=== PATIENT | male | born 1995 | race Caucasian/White ===

== ENCOUNTER 2021-03-13 13:08 | Inpatient (IN) ==
[2021-03-13] MEDS ORDERED: FAMOTIDINE/PF 20 MG/2 ML VIAL IV ONE (15:50)
--- NOTE | 2021-03-13 15:55 | Emergency Department Note ---
Abdominal Pain HPI General Chief Complaint: Abdominal Pain Stated Complaint: abdominal pain Time Seen by Provider: 03/13/21 15:44 Source: patient Mode of arrival: ambulatory Limitations: no limitations History of Present Illness HPI Narrative: Patient is a 25-year-old gentleman who arrives the emergency department by private vehicle complaining of abdominal pain. Patient says he has been having pain in his epigastric region the past 3 days. This is gradual in onset and waxing and waning in intensity. Nothing seems to make it any better or worse. He has had some associated nausea without vomiting. He finds that eating makes the pain worse. Nothing seems to make it any better. He is never had anything like this before. He denies any associated fever chills or urinary symptoms. He has not had any diarrhea in fact has been somewhat constipated. He has been passing gas. Related Data Home Medications Medication Instructions Recorded Confirmed quetiapine [Seroquel] 200 mg PO QHS 07/15/20 03/13/21 aripiprazole [Abilify] 5 mg PO QDAY 03/13/21 03/13/21 escitalopram oxalate [Lexapro] 10 mg PO QDAY 03/13/21 03/13/21 Allergies Allergy/AdvReac Type Severity Reaction Status Date / Time No Known Drug Allergies Allergy Verified 03/13/21 13:17 Review of Systems ROS ROS Narrative: Narrative: All systems ED: reviewed and negative except as stated. Constitutional: Denies fever and chills Cardiovascular: Denies chest pain Respiratory: Denies shortness of breath and cough PFSH Narrative Patient History Narrative: Narrative: Medical/Surgical/Family History All Active Problems (Updated 03/14/21 @ 18:11 by Lefty Leonardo DO) Choledocholithiasis (Acute) Suicidal ideation (Acute) Frequent stools (Acute) Memory changes (Acute) Pelvic pain in male (Acute) Pain in right testicle (Acute) Abnormal liver function (Acute) Cholelithiasis (Acute) PTSD (post-traumatic stress disorder) (Acute) Major depression, recurrent, chronic (Acute) Generalized anxiety disorder (Acute) Routine screening for STI (sexually transmitted infection) (Acute) Acid reflux (Chronic) Anxiety and depression (Chronic) Medical History (Updated 03/14/21 @ 18:11 by Lefty Leonardo DO) Abnormal liver function Acid reflux 11/17/2019 stable with omeprazole 20 12/15/2019 increase omeprazole 40 mg daily, discussed food and beverages to avoid, follow-up 1 month, for persisting symptoms will refer to GI 01/07/2020 improved, continue and for worsening symptoms he was encouraged to let me know 06/22/2020 deteriorated, increase omeprazole to 40 mg, follow-up 1 month, consider referral to gastroenterology for persisting symptoms Anxiety and depression 11/17/2019 continue all medication, refer to [facility], establish with counseling, encouraged exercise, set up an appointment for an annual physical exam in the next 2 to 3 months 12/15/2023 behavioral health number given, encouraged him to call to schedule an appointment 01/07/2020 he has now followed by [facility], continue care there, check labs today 06/22/2020 recent changes, questions about bipolar depression, recently seen Dr. Gomez who added Seroquel to Wellbutrin, duloxetine and Vyvanse, refer to psychiatry, continue counseling follow-up here 1 month Cholelithiasis Surgical History History of surgery (~2011) Ulnar shortening History of wisdom tooth extraction (~2010) Family History Father Acid reflux Mother Osteoporosis Grandmother Dementia Paternal Social History Smoking Status: Never smoker Alcohol Intake Frequency: a few times a month Substance Use: does not use Exam Narrative Narrative: I reviewed the vital signs. Gen -patient is awake and alert and in no acute distress. The patient is well groomed. HEENT -head is atraumatic. There is no conjunctival pallor or scleral icterus. CV -S1-S2 regular rate and rhythm. Peripheral pulses are palpable. There is no JVD. Resp -breathing is nonlabored. Lungs are clear to auscultation bilaterally. There is no cyanosis. GI - Abdomen is soft and moderately tender to palpation in the epigastric region and right upper quadrant. There is no Carrera sign.. There is no guarding or rebound tenderness. Derm -skin is warm and dry. There is no visible rash. MSK -present extremities are atraumatic. Psych -patient has appropriate affect. The patient does not appear internally stimulated. Neuro -patient answers questions appropriately with fluent speech. Patient move s all present extremities equally. General Limitations: no limitations Course Vital Signs Vital signs: Vital Signs Temperature 98.9 F 03/13/21 13:10 Pulse Rate 75 03/13/21 13:10 Respiratory Rate 16 03/13/21 13:10 Blood Pressure 112/73 03/13/21 13:10 Pulse Oximetry (%) 99 03/13/21 13:10 Temperature 98.6 F 03/14/21 17:33 Pulse Rate 82 03/14/21 17:33 Respiratory Rate 16 03/14/21 17:33 Blood Pressure 107/65 03/14/21 17:33 Pulse Oximetry (%) 95 03/14/21 17:33 MDM MDM Narrative Medical decision making narrative: Patient presents with epigastric discomfort. Of some right upper quadrant tenderness to palpation on my exam so is concerned about possible cholecystitis. I obtained an ultrasound that does reveal significant common bile duct dilatation as well as some borderline gallbladder wall thickening. Labs remarkable for transaminitis and elevated bilirubin. I discussed his history examination diagnostic findings with Dr. Linares. He thinks the patient would benefit from cholecystectomy and intraoperative cholangiogram. If retained stones are found on the intraoperative cholangiogram he will be available for ERCP. He recommended I contact a surgeon about the patient's condition. I spoke with Dr. Prado who accepts admission to his [facility]. I discussed the test results and need for surgery with the patient as well as his girlfriend via telephone. They are agreeable with the plan for admission. Lab Data Lab results reviewed: Yes I reviewed the patient's lab results. Result diagrams: 03/13/21 15:50 03/13/21 16:01 Labs: Lab Results 03/13/21 03/13/21 Range/Units 15:50 16:01 WBC 4.9 (4.5-11.0) K/mcL RBC 4.45 L (4.63-6.08) M/mcL Hgb 13.9 (13.7-17.5) g/dL Hct 41.0 (40.1-51.0) % MCV 92.1 (80.0-100.0) fL MCH 31.2 (26.0-34.0) pg MCHC 33.9 (31.0-36.0) g/dL RDW 12.5 (11.5-14.5) % Plt Count 153 (140-440) K/mcL MPV 9.0 (7.4-10.4) fL Neut % (Auto) 57.9 (38.0-78.0) % Lymph % (Auto) 30.9 (15.5-49.0) % [place] % (Auto) 10.0 (1.0-12.0) % Eos % (Auto) 0.8 (0.0-7.0) % Baso % (Auto) 0.4 (0.0-2.0) % Lymph # (Auto) 1.51 (1.50-4.80) K/mcL [place] # (Auto) 0.49 (0.10-0.90) K/mcL Eos # (Auto) 0.04 (0.00-0.70) K/mcL Baso # (Auto) 0.02 (0.00-0.30) K/mcL Absolute Neutrophils 2.83 (1.80-8.00) K/mcL Sodium 142 (133-145) mmol/L Potassium 3.6 (3.3-5.1) mmol/L Chloride 103 (96-108) mmol/L Carbon Dioxide 28 (22-30) mmol/L Anion Gap 11.0 (8.0-16.0) BUN 9 (6-20) mg/dL Creatinine 0.7 (0.7-1.2) mg/dL GFR Calculation 130 Glucose 92 (70-105) mg/dL Calcium 9.5 (8.6-10.4) mg/dL Total Bilirubin 2.1 H (0.1-1.0) mg/dL AST 83 H (<40) U/L ALT 345 H (<40) U/L Alkaline Phosphatase 210 H (39-117) U/L Total Protein 6.9 (5.9-8.4) gm/dL Albumin 4.2 (3.2-5.2) gm/dL Globulin 2.7 (2.2-3.7) gm/dL Albumin/Globulin Ratio 1.6 (1.0-2.3) Lipase 25 (7-60) U/L ED POC Tests ED POC Tests: LANDRY - SARS Antigen Negative Discharge Plan Patient/Caregiver Discharge Instructions Pt seen by GERMINATION WORKER/PA only: No Clinical Impression: Choledocholithiasis Patient Disposition: Xfer As Inpt ([facility]) Discharge Date/Time: 03/13/21:24
[2021-03-13 16:29] LABS: Basophils # (Auto) 0.02 K/mcL (0.00-0.30); Basophils % (Auto) 0.4 % (0.0-2.0); Eosinophils # (Auto) 0.04 K/mcL (0.00-0.70); Eosinophils % (Auto) 0.8 % (0.0-7.0); Hemoglobin 13.9 g/dL (13.7-17.5); Lymphocytes # (Auto) 1.51 K/mcL (1.50-4.80); Lymphocytes % (Auto) 30.9 % (15.5-49.0); Mean Cell Volume 92.1 fL (80.0-100.0); Mean Corpuscular HGB Conc 33.9 g/dL (31.0-36.0); Monocytes # (Auto) 0.49 K/mcL (0.10-0.90); Neutrophils % (Auto) 57.9 % (38.0-78.0); Platelet Count 153 K/mcL (140-440); RBC 4.45 M/mcL (4.63-6.08); Red Cell Distribution Width 12.5 % (11.5-14.5); WBC 4.9 K/mcL (4.5-11.0)
[2021-03-13 16:48] LABS: ALT/SGPT 345 U/L (<40); AST/SGOT 83 U/L (<40); Albumin 4.2 gm/dL (3.2-5.2); Albumin/Globulin Ratio 1.6 (1.0-2.3); Alkaline Phosphatase 210 U/L (39-117); Bilirubin,Total 2.1 mg/dL (0.1-1.0); Blood Urea Nitrogen 9 mg/dL (6-20); Calcium 9.5 mg/dL (8.6-10.4); Carbon Dioxide 28 mmol/L (22-30); Chloride 103 mmol/L (96-108); Globulin 2.7 gm/dL (2.2-3.7); Glomerular Filtration Rate 130; Glucose 92 mg/dL (70-105)
--- NOTE | 2021-03-13 17:47 | Ultrasound Report ---
CLINICAL INFORMATION: cholecystitis COMPARISON: None. FINDINGS: Multiple stones filling the gallbladder. Gallbladder wall is minimally thickened-3 mm with equivocal pain over the gallbladder. Common bile duct is dilated-12 mm. choledocholithiasis noted. Liver and pancreas are unremarkable. No free fluid IMPRESSION: Cholelithiasis. Equivocal gallbladder wall thickening and focal tenderness suggest developing cholecystitis. Moderate dilatation of the common bile duct due to choledocholithiasis. Interpreted and Authenticated by: Asa Amaro 03/13/21
[2021-03-13] MEDS ORDERED: ONDANSETRON 4 MG/2 ML VIAL IV PRN (18:23)
[2021-03-13] MEDS: 0.9 % SODIUM CHLORIDE 1,000 ML IV SCH (20:15)
[2021-03-14] MEDS: morphine 2 MG/ML VIAL IV PRN ×2 (03:02→10:11)
[2021-03-14] MEDS: 0.9 % SODIUM CHLORIDE 1,000 ML IV SCH ×3 (03:03→14:55)
--- NOTE | 2021-03-14 07:26 | General Surg History&Physical ---
HPI History of Present Illness Patient information: Note initiated : 03/14/21 at 7:22 am Service Date, if different from initiated Date: [] Patient: Amilcar Pina a 25 y/o M admitted on 03/13/21 for abdominal pain. Chief Complaint: Epigastric abdominal pain History of present illness: Mr. Juanjo Markham is a 25 year old M with a known history of cholelithiasis who has had 2 or 3 attacks over the last year, however the last 2 days he has had an increase in epigastric abdominal pain. The is normal attacks would resolve within 2 to 3 hours however this 1 lasted greater than 6 hours so he came into the emergency room denies any fevers chills nausea or vomiting. He denies any sick contact or travel. On work-up in the emergency room he was found to have cholelithiasis and choledocholithiasis. He is being admitted for further work-up. Review of Systems Review of systems: All systems are reviewed, negative other than above PFSH PFSH All Active Problems Choledocholithiasis (Acute) Suicidal ideation (Acute) Frequent stools (Acute) Memory changes (Acute) Pelvic pain in male (Acute) Pain in right testicle (Acute) Abnormal liver function (Acute) Cholelithiasis (Acute) PTSD (post-traumatic stress disorder) (Acute) Major depression, recurrent, chronic (Acute) Generalized anxiety disorder (Acute) Routine screening for STI (sexually transmitted infection) (Acute) Acid reflux (Chronic) Anxiety and depression (Chronic) Medical History Abnormal liver function Acid reflux 11/17/2019 stable with omeprazole 20 12/15/2019 increase omeprazole 40 mg daily, discussed food and beverages to avoid, follow-up 1 month, for persisting symptoms will refer to GI 01/07/2020 improved, continue and for worsening symptoms he was encouraged to let me know 06/22/2020 deteriorated, increase omeprazole to 40 mg, follow-up 1 month, consider referral to gastroenterology for persisting symptoms Anxiety and depression 11/17/2019 continue all medication, refer to [facility], establish with counseling, encouraged exercise, set up an appointment for an annual physical exam in the next 2 to 3 months 12/15/2023 behavioral health number given, encouraged him to call to schedule an appointment 01/07/2020 he has now followed by [facility], continue care there, check labs today 06/22/2020 recent changes, questions about bipolar depression, recently seen Dr. Gomez who added Seroquel to Wellbutrin, duloxetine and Vyvanse, refer to psychiatry, continue counseling follow-up here 1 month Cholelithiasis Surgical History History of surgery (~2011) Ulnar shortening History of wisdom tooth extraction (~2010) Family History Father Acid reflux Mother Osteoporosis Grandmother Dementia Paternal Social History marital status: single alcohol intake frequency: a few times a month substance use type: does not use MEDS/ALLERGIES Home Medications and Allergies Home Medications Medication Instructions Recorded Confirmed Type quetiapine [Seroquel] 200 mg PO QHS 07/15/20 03/13/21 History aripiprazole [Abilify] 5 mg PO QDAY 03/13/21 03/13/21 History escitalopram oxalate [Lexapro] 10 mg PO QDAY 03/13/21 03/13/21 History Allergies Allergy/AdvReac Type Severity Reaction Status Date / Time No Known Drug Allergies Allergy Verified 03/13/21 13:17 Physical Examination Vital Signs Vital signs: Temp Pulse Resp BP Pulse Ox 98.3 F 65 16 106/68 96 03/14/21 02:46 03/14/21 02:46 03/14/21 02:46 03/14/21 02:46 03/14/21 02:46 General physical appearance General physical exam: well developed, well nourished and no distress Eyes Eye exam: PERRL and normal ocular movement; negative icteric ENT ENT exam: normal pinna, normal nares, normal mucosa, no hearing loss and no congestion Head Head exam IM: Present atraumatic and normocephalic Neck Neck exam: no masses, no bruits, trachea midline, no lymphadenopathy and no venous distension Cardiovascular Cardiovascular exam IM: Present normal rate and rhythm Respiratory Respiratory exam: normal expansion, normal respiratory effort, clear to percussion and clear to auscultation Abdomen Abdomen: Present soft, tender (RUQ) and bowel sounds; Absent guarding, rigid and rebound Hernia: Present none Genitourinary Genitourinary (Male): Present normal penis with no external lesions Rectum Rectum: Present normal sphincter tone, no hemorrhoids, no tenderness, no masses and no bleeding Integumentary Integumentary: Present no rash, no growths and no abnormal pigmentation Neurologic Neurologic: Present normal coordination and normal sensation Musculoskeletal Musculoskeletal: Present normal gait and normal posture Psychiatric Psychiatric: Present oriented to time, oriented to person, oriented to place, speech is normal and memory intact Results Labs Result diagrams: 03/13/21 15:50 03/13/21 16:01 Labs: Abnormal lab results 03/13/21 03/13/21 Range/Units 15:50 16:01 RBC 4.45 L (4.63-6.08) M/mcL Total Bilirubin 2.1 H (0.1-1.0) mg/dL AST 83 H (<40) U/L ALT 345 H (<40) U/L Alkaline Phosphatase 210 H (39-117) U/L Diabetes panel 03/13/21 Range/Units 16:01 Sodium 142 (133-145) mmol/L Potassium 3.6 (3.3-5.1) mmol/L Chloride 103 (96-108) mmol/L Carbon Dioxide 28 (22-30) mmol/L BUN 9 (6-20) mg/dL Creatinine 0.7 (0.7-1.2) mg/dL Glucose 92 (70-105) mg/dL Calcium 9.5 (8.6-10.4) mg/dL AST 83 H (<40) U/L ALT 345 H (<40) U/L Alkaline Phosphatase 210 H (39-117) U/L Total Protein 6.9 (5.9-8.4) gm/dL Albumin 4.2 (3.2-5.2) gm/dL Calcium panel 03/13/21 Range/Units 16:01 Calcium 9.5 (8.6-10.4) mg/dL Albumin 4.2 (3.2-5.2) gm/dL Pituitary panel 03/13/21 Range/Units 16:01 Sodium 142 (133-145) mmol/L Potassium 3.6 (3.3-5.1) mmol/L Chloride 103 (96-108) mmol/L Carbon Dioxide 28 (22-30) mmol/L BUN 9 (6-20) mg/dL Creatinine 0.7 (0.7-1.2) mg/dL Glucose 92 (70-105) mg/dL Calcium 9.5 (8.6-10.4) mg/dL Adrenal panel 03/13/21 Range/Units 16:01 Sodium 142 (133-145) mmol/L Potassium 3.6 (3.3-5.1) mmol/L Chloride 103 (96-108) mmol/L Carbon Dioxide 28 (22-30) mmol/L BUN 9 (6-20) mg/dL Creatinine 0.7 (0.7-1.2) mg/dL Glucose 92 (70-105) mg/dL Calcium 9.5 (8.6-10.4) mg/dL Total Bilirubin 2.1 H (0.1-1.0) mg/dL AST 83 H (<40) U/L ALT 345 H (<40) U/L Alkaline Phosphatase 210 H (39-117) U/L Total Protein 6.9 (5.9-8.4) gm/dL Albumin 4.2 (3.2-5.2) gm/dL All other labs normal. A/P Assessment and plan (1) Abnormal liver function: Status: Acute (2) Cholelithiasis: Status: Acute (3) Choledocholithiasis: Status: Acute Narrative A/P Narrative: This is a pleasant 25-year-old gentleman who presents with known cholelithiasis and choledocholithiasis on current work-up. Risk, benefits, alternatives to surgical treatment including the possible need for ERCP and common bile duct expiration were discussed with him at length. All of his questions are answered and he desires to continue with treatment. Plan: He will be admitted to the hospital, made n.p.o. I will take him to the operating room at the next available OR time for a laparoscopic cholecystectomy with interoperative cholangiogram, possible common bile duct exploration. If choledocholithiasis is found and unable to be treated laparoscopically I will contact Dr. Linares for possible ERCP. Time Spent With Patient Time: Total time spent is greater than 50% in coordination of care (as documented) at patient's floor/unit and/or counseling patient:
[2021-03-14] MEDS ORDERED: ceFAZolin 2 GM in DEXTROSE 5% IN WATER 50 ML IV SCH (07:30)
[2021-03-14] MEDS ORDERED: PROPOFOL 200 MG/20 ML VIAL IV ONE ×2 (07:40→12:28)
[2021-03-14] MEDS ORDERED: GLUCAGON,HUMAN RECOMBINANT 1 MG VIAL ONE (07:40)
[2021-03-14] MEDS ORDERED: KETAMINE 50 MG/ML Syringe (ANEST) ONE (07:40)
[2021-03-14] MEDS ORDERED: ONDANSETRON 4 MG/2 ML VIAL ONE (07:40)
[2021-03-14] MEDS ORDERED: SUGAMMADEX SODIUM 200 MG/2 ML VIAL IV ONE (07:40)
[2021-03-14] MEDS ORDERED: fentaNYL 250 MCG/5 ML VIAL IV ONE (07:40)
[2021-03-14] MEDS ORDERED: MAGNESIUM SULFATE 2 GM/50 ML BAG IV ONE (07:40)
[2021-03-14] MEDS ORDERED: GLYCOPYRROLATE 0.2 MG/ML VIAL IV ONE (07:40)
[2021-03-14] MEDS ORDERED: DEXAMETHASONE 10 MG/ML VIAL ONE (07:40)
[2021-03-14] MEDS ORDERED: ROCURONIUM 10 MG/ML ML IV ONE (07:40)
[2021-03-14] MEDS ORDERED: LIDOCAINE HCL/PF 100 MG/5 ML SYRINGE IV ONE (07:40)
[2021-03-14] MEDS ORDERED: MEPERIDINE 25 MG/ML VIAL IV PRN (08:14)
[2021-03-14] MEDS ORDERED: ACETAMINOPHEN 1,000 MG/100 ML BAG IV ONE (08:14)
[2021-03-14] MEDS ORDERED: NALOXONE HCL 0.4 MG/ML VIAL IV PRN (08:14)
[2021-03-14] MEDS ORDERED: ONDANSETRON 4 MG/2 ML VIAL IV PRN (08:14)
[2021-03-14] MEDS ORDERED: diphenhydrAMINE 50 MG/ML VIAL IV PRN (08:14)
[2021-03-14] MEDS ORDERED: LACTATED RINGERS 250 ML IV PRN (08:14)
[2021-03-14] MEDS ORDERED: PROMETHAZINE 25 MG/ML VIAL IV PRN (08:14)
[2021-03-14] MEDS ORDERED: BENZOCAINE/MENTHOL 1 LOZENGE PO PRN (08:14)
[2021-03-14] MEDS ORDERED: IPRATROPIUM/ALBUTEROL 3 ML AMPUL.NEB NEB PRN (08:14)
[2021-03-14] MEDS ORDERED: fentaNYL 100 MCG/2 ML VIAL IV PRN (08:14)
[2021-03-14] MEDS ORDERED: KETOROLAC 30 MG/ML VIAL IV PRN (08:14)
[2021-03-14] MEDS ORDERED: LACTATED RINGERS 1,000 ML IV SCH (08:15)
[2021-03-14] MEDS ORDERED: IOVERSOL 100 ML VIAL IJ ONE (08:33)
[2021-03-14] MEDS ORDERED: LIDOCAINE W/EPI 1% 20 ML VIAL IJ ONE (08:33)
[2021-03-14] MEDS ORDERED: BUPIVACAINE 0.5% 50 ML VIAL IJ ONE (08:33)
[2021-03-14] MEDS ORDERED: HYDROmorphone 0.5 MG/0.5 ML SYRINGE IV PRN (08:52)
--- NOTE | 2021-03-14 08:52 | Operative Note ---
Brief Operative Note Date of procedure: 03/14/21 Pre-op diagnosis: Cholelithiasis, choledocholithiasis Post-op diagnosis: same Procedure: Laparoscopic cholecystectomy, intraoperative cholangiogram, attempted, bile duct exploration Grafts/Implants: No Anesthesia: GETA Findings: Distal choledocholithiasis, cholelithiasis, evidence of acute on chronic cholecystitis Complications: none Surgeon: Austin Prado Estimated blood loss (cc): 10 Specimens Removed/Pathology: other (Gallbladder and contents) Condition: stable Disposition: PACU Operative Note Operative Note: After risk benefits and alternatives to the procedure were discussed with the patient at length he verbalized understanding and desire to continue with the procedure. Patient was taken main operating room placed upon the operative table. General anesthesia was induced over endotracheal tube. Patient was prepped and draped in the standard sterile surgical fashion. Surgical timeout was taken to verify patient and procedure being performed. 1% lidocaine half percent Marcaine was used for local anesthesia throughout the case. Left upper quadrant incision was made, a varies needle was inserted and the abdominal cavity was insufflated with carbon dioxide. The abdominal cavity was then entered under direct vision using a 5 mm Optiview trocar through a supraumbilical incision. Visual inspection revealed no injuries and the varies needle was removed under direct vision. 12 mm upper midline trocar, 5 mm right upper quadrant, and a second 5 mm right upper quadrant trochars were all placed under direct vision. Patient was placed in a head up right side up position. Attention was turned to the gallbladder where peritoneal attachments to the gallbladder were carefully taken down, the peritoneal attachments were taken down to pedunculated the gallbladder in standard fashion. The triangle DENZEL was then carefully dissected free with blunt dissection. Once a critical view of safety was clearly identified the cystic duct was clipped, on table cholangiogram was performed which showed a long tortuous cystic duct a dilated common bile duct, normal common hepatic and right and left hepatic ducts and distal obstruction in the distal common bile duct consistent with choledocholithiasis. A 4 Setswana Fabiola catheter was then passed into the cystic duct however due to the tortuosity of the cystic duct it was unable to be passed into the common bile duct. Milligram of glucagon was given IV and repeat cholangiogram was attempted which still did not show any clearing of the duct. At this time due to the tortuosity of the cystic duct decision was made to have GI attempted ERCP as an inpatient and the cystic duct and cystic artery were surgically clipped and transected. The gallbladder was removed from the gallbladder fossa using electrocautery this placed in Endo Catch bag removed through the upper midline incision and passed off the field for surgical pathology. Attention was turned back to the gallbladder fossa which was inspected for hemostasis, the area was lightly irrigated and all irrigant was suctioned free from the abdominal cavity.. The upper midline fascial defect was then reapproximated with a interrupted 0 Vicryl suture. CO2 and trochars were removed from the abdominal cavity under direct vision. Trocar sites were inspected for hemostasis. Skin edges were closed with interrupted 4 Monocryl sutures skin glue dressings were applied. Patient was then awakened from anesthesia transported postanesthesia care unit awake alert in good condition.
[2021-03-14] MEDS: LACTATED RINGERS 1,000 ML IV SCH ×3 (10:15→13:32)
[2021-03-14] MEDS ORDERED: INDOMETHACIN 25 MG CAPSULE PO ONE (13:10)
[2021-03-14] MEDS ORDERED: NITROGLYCERIN 0.6 MG/HR PATCH TD ONE (13:11)
--- NOTE | 2021-03-14 13:46 | Internal Medicine Consult Note ---
HPI Data of Consult Patient: new to practice Consult date: 03/14/21 Requesting physician: Austin Prado Primary Care Provider: Irene Linares Consult Narrative Patient Information: Note initiated : 03/14/21 at 1:42 pm Service Date, if different from initiated Date: [] Patient: Amilcar Pina 25 y/o M admitted on 03/13/21 for abdominal pain. Chief Complaint: [choledocholithiasis] 25 year old white male who presented to ER with symptomatic cholelithiasis with biliary dilatation with CBD measuring 12mm and elevated liver enzymes in a mixed cholestatic/hepatic pattern (TB 2.1, ALP 210, AST 83, ALT 345). He underwent cholecystectomy but intraoperative cholangiogram was not clear. We are consulted for possible ERCP. Chief complaint: choledocholithiasis cc:: CC: Austin Prado MD PFS PFSH All Active Problems (Updated 03/14/21 @ 13:50 by MATI Schmitt) Choledocholithiasis (Acute) Suicidal ideation (Acute) Frequent stools (Acute) Memory changes (Acute) Pelvic pain in male (Acute) Pain in right testicle (Acute) Abnormal liver function (Acute) Cholelithiasis (Acute) PTSD (post-traumatic stress disorder) (Acute) Major depression, recurrent, chronic (Acute) Generalized anxiety disorder (Acute) Routine screening for STI (sexually transmitted infection) (Acute) Acid reflux (Chronic) Anxiety and depression (Chronic) Medical History (Updated 03/14/21 @ 13:50 by MATI Schmitt) Abnormal liver function Acid reflux 11/17/2019 stable with omeprazole 20 12/15/2019 increase omeprazole 40 mg daily, discussed food and beverages to avoid, follow-up 1 month, for persisting symptoms will refer to GI 01/07/2020 improved, continue and for worsening symptoms he was encouraged to let me know 06/22/2020 deteriorated, increase omeprazole to 40 mg, follow-up 1 month, consider referral to gastroenterology for persisting symptoms Anxiety and depression 11/17/2019 continue all medication, refer to [facility] behavioral health, establish with counseling, encouraged exercise, set up an appointment for an annual physical exam in the next 2 to 3 months 12/15/2023 behavioral health number given, encouraged him to call to schedule an appointment 01/07/2020 he has now followed by behavioral health, continue care there, check labs today 06/22/2020 recent changes, questions about bipolar depression, recently seen Dr. Gomez who added Seroquel to Wellbutrin, duloxetine and Vyvanse, refer to psychiatry, continue counseling follow-up here 1 month Cholelithiasis Surgical History History of surgery (~2011) Ulnar shortening History of wisdom tooth extraction (~2010) Family History Father Acid reflux Mother Osteoporosis Grandmother Dementia Paternal Social History marital status: single alcohol intake frequency: a few times a month substance use type: does not use MEDS/ALLERGIES Home Medications and Allergies Home Medications Medication Instructions Recorded Confirmed Type quetiapine [Seroquel] 200 mg PO QHS 07/15/20 03/13/21 History aripiprazole [Abilify] 5 mg PO QDAY 03/13/21 03/13/21 History escitalopram oxalate [Lexapro] 10 mg PO QDAY 03/13/21 03/13/21 History Allergies Allergy/AdvReac Type Severity Reaction Status Date / Time No Known Drug Allergies Allergy Verified 03/13/21 13:17 EXAM Constitutional Vitals: Temp Pulse Resp BP Pulse Ox 98.4 F 87 19 107/63 96 03/14/21 09:35 03/14/21 12:15 03/14/21 09:36 03/14/21 12:15 03/14/21 12:15 Head Head exam: Present atraumatic, normal inspection and normocephalic Eye Eye exam: Present normal appearance ENT ENT exam: Present normal exam Neck Neck exam: Present normal inspection Respiratory Respiratory exam: Present normal respiratory exam and CTAB; Absent accessory muscle use Cardiovascular Cardiovascular exam: Present normal rate and rhythm; Absent diastolic murmur, gallop, rubs and systolic murmur GI/Abdominal GI/Abdominal exam: Present normal bowel sounds and soft; Absent organomegaly and tenderness Skin Skin exam: Present dry and pallor DATA Data Completed and Pending Labs: Labs from last 24 hours 03/13/21 03/13/21 16:01 15:50 WBC 4.9 RBC 4.45 L Hgb 13.9 Hct 41.0 MCV 92.1 MCH 31.2 MCHC 33.9 RDW 12.5 Plt Count 153 MPV 9.0 Neut % (Auto) 57.9 Lymph % (Auto) 30.9 [facility] % (Auto) 10.0 Eos % (Auto) 0.8 Baso % (Auto) 0.4 Lymph # (Auto) 1.51 [facility] # (Auto) 0.49 Eos # (Auto) 0.04 Baso # (Auto) 0.02 Absolute Neutrophils 2.83 Sodium 142 Potassium 3.6 Chloride 103 Carbon Dioxide 28 Anion Gap 11.0 BUN 9 Creatinine 0.7 GFR Calculation 130 Glucose 92 Calcium 9.5 Total Bilirubin 2.1 H AST 83 H ALT 345 H Alkaline Phosphatase 210 H Total Protein 6.9 Albumin 4.2 Globulin 2.7 Albumin/Globulin Ratio 1.6 Lipase 25 A/P Assessment and plan (1) Choledocholithiasis: Status: Acute Comment: I reviewed his case with Dr. Hester. We will arrange for ERCP to assess his biliary dilatation and cholestasis. I described the procedure using an illustration and discussed the risks of bleeding, perforation, pancreatitis or infection. He agrees to proceed. Time Spent With Patient Time: Total time spent is greater than 50% in coordination of care (as documented) at patient's floor/unit and/or counseling patient:
--- NOTE | 2021-03-14 14:50 | XRay Report ---
CLINICAL INFORMATION: laparoscopic magdy with cholangiogram COMPARISON: None. FINDINGS: Intraoperative cholangiogram shows moderate dilatation of the common hepatic and common bile duct with filling defects and the distal common bile duct compatible with choledocholithiasis. Stone appears to be approximately 8 mm. No contrast is seen in the duodenum on images submitted. IMPRESSION: Choledocholithiasis. 8 mm stone in the distal common bile duct resulting in obstruction. Interpreted and Authenticated by: Asa Amaro 03/14/21
[2021-03-14] MEDS ORDERED: MIDAZOLAM 2 MG/2 ML VIAL IV ONE (15:45)
[2021-03-14] MEDS ORDERED: HYDROmorphone 1 MG/ML SYRINGE IV PRN (23:33)
[2021-03-15] MEDS: LACTATED RINGERS 1,000 ML IV SCH ×3 (00:11→08:56)
[2021-03-15 07:02] LABS: Basophils # (Auto) 0.01 K/mcL (0.00-0.30); Basophils % (Auto) 0.2 % (0.0-2.0); Eosinophils # (Auto) 0.03 K/mcL (0.00-0.70); Eosinophils % (Auto) 0.5 % (0.0-7.0); Hematocrit 32.6 % (40.1-51.0); Hemoglobin 11.4 g/dL (13.7-17.5); Lymphocytes # (Auto) 1.48 K/mcL (1.50-4.80); Lymphocytes % (Auto) 23.4 % (15.5-49.0); Mean Cell Volume 90.3 fL (80.0-100.0); Mean Platelet Volume 9.8 fL (7.4-10.4); Monocytes # (Auto) 0.45 K/mcL (0.10-0.90); Monocytes % (Auto) 7.1 % (1.0-12.0); Neutrophils % (Auto) 68.8 % (38.0-78.0); Platelet Count 138 K/mcL (140-440); RBC 3.61 M/mcL (4.63-6.08); Red Cell Distribution Width 12.1 % (11.5-14.5); WBC 6.3 K/mcL (4.5-11.0)
[2021-03-15 08:05] LABS: ALT/SGPT 264 U/L (<40); AST/SGOT 99 U/L (<40); Albumin 3.5 gm/dL (3.2-5.2); Albumin/Globulin Ratio 1.7 (1.0-2.3); Alkaline Phosphatase 173 U/L (39-117); Bilirubin,Total 1.5 mg/dL (0.1-1.0); Blood Urea Nitrogen 11 mg/dL (6-20); Calcium 8.5 mg/dL (8.6-10.4); Carbon Dioxide 26 mmol/L (22-30); Chloride 103 mmol/L (96-108); Globulin 2.1 gm/dL (2.2-3.7); Glomerular Filtration Rate 130; Glucose 80 mg/dL (70-105)
--- NOTE | 2021-03-15 08:53 | Discharge Summary ---
Discharge Provider Provider Patient information: Note initiated : 03/15/21 at 8:51 am Service Date, if different from initiated Date: [] Patient: Amilcar Pina 25 y/o M admitted on 03/13/21 for abdominal pain. Chief Complaint: [] Date of admission: 03/13/21 19:24 Discharge date: 03/15/21 Primary care physician: Irene Linares Consults: 03/13/21 Consult to Physician [CONS] Stat Comment: Consulting Provider: Bogdan Hester Reason For Exam: Physician to Consult Consult to Physician [CONS] Stat Comment: Consulting Provider: Austin Prado Reason For Exam: Physician to Consult COURSE Hospital Course Hospital course: Patient was admitted for acute cholecystitis with choledocholithiasis, underwent laparoscopic cholecystectomy with interoperative cholangiogram, this showed a distal choledocholithiasis, attempted intraoperative laparoscopic common bile duct expiration was not successful secondary to a tortuous cystic duct. Later that day he underwent an ERCP with stone extraction without difficulty. Today he is feeling better, minimal pain, tolerating liquid diet with improvement in all laboratory data. Discharge diagnosis: Status post cholecystectomy, ERCP Procedures: Laparoscopic cholecystectomy with interoperative cholangiogram. ERCP. Time Spent with Patient Time attestation: Total time spent providing and/or coordinating discharge services: Physical Examination Vital Signs Vital signs: Temp Pulse Resp BP Pulse Ox 98.3 F 71 16 99/54 97 03/15/21 08:00 03/15/21 08:00 03/15/21 08:00 03/15/21 08:00 03/15/21 08:00 Discharge Plan Patient/Caregiver Discharge Instructions Activity: increase activity as tolerated Diet: Regular Diet Activity Restrictions/Additional Instructions: Follow-up with me in 2 to 3 weeks. Progressive activity as tolerated. May shower starting today. Prescriptions: New ibuprofen 800 mg tablet 800 mg PO TID PRN (Reason: pain) Qty: 60 RF: 0 acetaminophen [Tylenol 8 Hour] 650 mg tablet extended release 650 mg PO Q8H PRN (Reason: pain) Qty: 60 RF: 0 oxycodone 5 mg tablet 5 mg PO Q6H PRN (Reason: pain) Qty: 5 RF: 0 Continued quetiapine [Seroquel] 100 mg Tablet 200 mg PO QHS RF: 0 escitalopram oxalate [Lexapro] 10 mg Tablet 10 mg PO QDAY RF: 0 aripiprazole [Abilify] 5 mg Tablet 5 mg PO QDAY RF: 0 Follow Up Plan Follow up with: Austin Prado MD [Physician] - Patient Disposition: Home, Self-Care Discharge Orders: Discharge Order (Routine); Ordered 03/15/21 Ordered By: Austin Prado Pending Pending Pending: Resuscitation Status Resuscitate (Full Code) Diet Clear Liquid Diet Start SatMar 14 2337 Lactated Ringer's (Lactated Ringers) 1,000 mls @ 125 mls/hr IV .Q8H AFIA Last Admin: 03/15/21 01:28 Dose: 125 mls/hr Documented by: Infusion: 03/14/21 21:32 Dose: 125 mls/hr Documented by: Admin: 03/14/21 13:32 Dose: 125 mls/hr Documented by: BIANCA Ondansetron HCl (Ondansetron 4 Mg/2 Ml Vial) 4 mg IV Q4HP PRN; Protocol PRN Reason: Nausea And Vomiting Last Admin: 03/14/21 21:15 Dose: 4 mg Documented by: BEE Shift Summary 03/15/21 05:31 Shift Summary by Kelsea Franklin Pt is post-op Lap magdy/ERCP. Clear liquid diet since 2209. Pt is alert and oriented x4. Able to make needs known. SBA of 1 with gait belt. Ambulated 388 ft and tolerated it well. LS: clear throughout all benjamin. Green bile emesis x1. Zofran given at 2114 and was effective. HR: regular/strong. BT: active x4. Abd is flat, soft and with slight tenderness. VSS. Voided in urinal 650cc. No BM on this shift. Hx of anxiety/depression with report of a suicide attempt about 5 months ago but reports situation is much improved now. Patent and intact 20 gauge IV in the LFA LR 125mls/hr. Reports pain 4/10 but refused pain meds on this shift. Slept most of the night. Will update at bedside. Initialized on 03/15/21 05:31 - END OF NOTE
--- NOTE | 2021-03-15 10:40 | ERCP Procedure Note ---
ERCP Procedure Note Procedure Information Patient information: Note initiated : 03/15/21 at 10:38 am Service Date: 03/14/21 Patient: Amilcar Pina 25 y/o M admitted on 03/13/21 for Choledocholithiasis Pre-op diagnosis general: Common bile duct stone. Post-op diagnosis general: Common bile duct stone. Procedure: ERCP with Papilotomy Procedure narrative: The procedures, alternatives and risks were discussed with the patient and the patient's questions were answered. With endoscopist-administered intravenous sedation, the Olympus side viewing operating duodenoscope was introduced into the esophagus and advanced to the second part of the duodenum without difficulty. The ampulla of Vater was identified and papillotomy performed. The bile duct was selectively cannulated taking care to avoid the pancreatic duct and cholangiogram obtained. The bile duct was dilated and obstructed with a common duct stone. The stone was extracted with balloon techniques. At the end of the procedure, the bile duct appeared to be cleared of all stones. The scope was withdrawn. Assessment: Common bile duct stone.
--- NOTE | 2021-03-15 14:29 | Surgical Pathology Report ---
Histology Microscopic Diagnosis Specimen A- GALLBLADDER, CHOLECYSTECTOMY: --- CHRONIC CHOLECYSTITIS WITH CHOLELITHIASIS. Procedural Impression Cholelithiasis. Gross Description Received in formalin labeled gallbladder, is a purple-evans gallbladder measuring 11 x 4 x 3.5 cm. The cystic duct is closed with a clip. Upon opening there are multiple yellow multinodular firm stones with maximum dimensions ranging from 0.4 to 0.7 cm. The wall thickness is 0.2-0.3 cm. The mucosa surface is green-evans and velvety and no gross lesions are identified. Photo Equipment Technician sections submitted in one cassette. (RLF:sln) Electronically Signed Brenda Roque MD, FCAP Electronically Signed 03/15/2021 14:28
--- NOTE | 2021-03-18 06:57 | XRay Report ---
CLINICAL INFORMATION: Choledocholithiasis COMPARISON: None. FINDINGS: Exam was performed by Dr. Hester. He successfully cannulated and injected the common bile duct. Intrahepatic, hepatic and common bile ducts are moderately dilated due to a stone in the distal common bile duct. This was successfully extracted with balloon catheter NG tube papillotomy was performed. IMPRESSION: Choledocholithiasis. Stone in the common bile duct resulting in obstruction was successfully retrieved with a balloon caliber and papillotomy was performed resulting in good drainage. Interpreted and Authenticated by: Asa Amaro 03/18/21
== END 2021-03-15 13:20 | disposition home or self-care (01) | DRG 418 ==
LOC: ED 13:08 → MEDSUR 19:24
PROVIDERS: ADMIT Family Medicine Adult Medicine; ATTEND Surgery